=== PATIENT | female | born 1970 | race Caucasian/White ===

== ENCOUNTER 2017-03-25 01:02 | Emergency (ER) ==
[2017-03-25] MEDS ORDERED: DECADRON 4 MG/ML SDV IM STA (01:04)
--- NOTE | 2017-03-25 01:07 | ED.PDOC ---
General ED Provider: Dr. RENU BAUER-ER Chief Complaint: Rash Stated Complaint: i got into poison bridget Time Seen by Physician: 01:05 Mode of Arrival: Walk-In Information Source: Patient Exam Limitations: No limitations Nursing and Triage Documentation Reviewed and Agree: Yes Skin Complaint Exam - Skin Rash/Itching Complaint/Exam Onset/Duration: 24hrs Symptoms Are: Still present Initial Severity: Mild Current Severity: Mild Location: face and anterior chest Potential Exposures: Reports: Unknown Aggravating: Reports: None Alleviating: Reports: None Associated Signs and Symptoms: Denies: Difficulty breathing, Fever, Chills Skin Findings: Present: Urticaria, Maculae Differential Diagnoses: Contact Dermatitis, Poison Bridget/[place] Review of Systems - Review Of Systems Constitutional: Reports: No symptoms Eyes: Reports: No symptoms Ears, Nose, Mouth, Throat: Reports: No symptoms Respiratory: Reports: No symptoms Cardiac: Reports: No symptoms GI: Reports: No symptoms : Reports: No symptoms Musculoskeletal: Reports: No symptoms Skin: Reports: Rash Neurological: Reports: No symptoms Endocrine: Reports: No symptoms Hematologic/Lymphatic: Reports: No symptoms All Other Systems: Reviewed and Negative Past Medical History - Past Medical History Previously Healthy: Yes Endocrine: Reports: None Cardiovascular: Reports: None Respiratory: Reports: None Hematological: Reports: None Gastrointestinal: Reports: None Genitourinary: Reports: None Neuro/Psych: Reports: None Musculoskeletal: Reports: None Cancer: Reports: None - Surgical History General Surgical History: Reports: Hysterectomy (2015), (x 1) - Family History Family History: Reports: None - Social History Smoking Status: Current every day smoker, Heavy tobacco smoker Hx Substance Use: No Alcohol Screening: None Lives: With family Physical Exam - Physical Exam Appearance: Well-appearing Eyes: JEN, EOMI, Conjunctiva clear ENT: Ears normal, Nose normal, Oropharynx normal Neck: Supple Respiratory: Airway patent, Breath sounds clear, Breath sounds equal, Respirations nonlabored Cardiovascular: RRR, Pulses normal, No rub, No murmur GI/: Soft, Nontender, No masses, Bowel sounds normal, No Organomegaly Musculoskeletal: Normal strength, ROM intact, No edema, No calf tenderness Skin: Warm, Dry, Normal color (noted macular rash over the face) Neurological: Sensation intact, Motor intact, Reflexes intact, Cranial nerves intact, Alert, Oriented Psychiatric: Affect appropriate Critical Care Note - Critical Care Note Total Time (mins): 0 Course - Course Orders, Labs, Meds: Orders Category Date Time Status Dexamethasone 4 mg/ml Inj [Decadron 4 mg/ml Sdv] MEDS 03/25/17 01:04 Stat 8 mg IM ONCE STA Medications Generic Name Dose Route Start Last Admin Trade Name Sandy PRN Reason Stop Dose Admin Dexamethasone Sodium Phosphate 8 mg 03/25/17 01:04 Decadron 4 Mg/Ml Sdv IM 03/25/17 01:05 ONCE STA Departure - Departure Time of Disposition: 01:06 Disposition: HOME SELF-CARE Discharge Problem: Contact dermatitis Qualifiers: Contact dermatitis type: allergic Contact dermatitis trigger: non-food plants Qualifier Code: (L23.7) Allergic contact dermatitis due to plants, except food Instructions: Contact Dermatitis (ED) Condition: Good Pt referred to PMD for follow-up: Yes Additional Instructions: do not apply anything to the face===prednisone 40mg x 2 days then 20mg x2 days then 10mg x 2 days Allergies/Adverse Reactions: Allergies poison bridget extract Adverse Reaction (Verified 05/22/16 12:12) Home Medications: Ambulatory Orders 1 [No Reported Medications] 04/08/16 Disposition Discussed With: Patient
[2017-03-25 01:11] VITALS: BP 120/86; TEMP 98.4; BMI 28.3
== END 2017-03-25 01:35 | disposition home or self-care (01) ==
LOC: ED 01:02
DX: L23.7 Allergic contact dermatitis due to plants, except food (principal); F17.210 Nicotine dependence, cigarettes, uncomplicated
CPT/HCPCS: 96372; 99282

== ENCOUNTER 2017-04-08 21:56 | Emergency (ER) ==
[2017-04-08 21:59] VITALS: BP 123/80; TEMP 98; BMI 27.4
--- NOTE | 2017-04-08 22:10 | ED.PDOC ---
General ED Provider: Dr. RENU BAUER-ER Chief Complaint: Rash Stated Complaint: i have this rash--been in the weeds and its itchy Time Seen by Physician: 22:04 Mode of Arrival: Walk-In Information Source: Patient Exam Limitations: No limitations Nursing and Triage Documentation Reviewed and Agree: Yes Skin Complaint Exam - Skin Rash/Itching Complaint/Exam Onset/Duration: 3 weeks Symptoms Are: Still present Initial Severity: Mild Current Severity: Moderate Location: extremities and abdomen Potential Exposures: Reports: Insect bite, Scabies Aggravating: Reports: Heat Associated Signs and Symptoms: Denies: Difficulty breathing, Fever, Chills Skin Findings: Present: Dry scaly skin, Weeping skin, Dwight tracts Differential Diagnoses: Contact Dermatitis, Poison Bridget/[place], Scabies Review of Systems - Review Of Systems Constitutional: Reports: No symptoms Eyes: Reports: No symptoms Ears, Nose, Mouth, Throat: Reports: No symptoms Respiratory: Reports: No symptoms Cardiac: Reports: No symptoms GI: Reports: No symptoms : Reports: No symptoms Musculoskeletal: Reports: No symptoms Skin: Reports: Rash Neurological: Reports: No symptoms Endocrine: Reports: No symptoms Hematologic/Lymphatic: Reports: No symptoms All Other Systems: Reviewed and Negative Past Medical History - Past Medical History Previously Healthy: Yes Endocrine: Reports: None Cardiovascular: Reports: None Respiratory: Reports: None Hematological: Reports: None Gastrointestinal: Reports: None Genitourinary: Reports: None Neuro/Psych: Reports: None Musculoskeletal: Reports: None Cancer: Reports: None Last Menstrual Period: n/a - Surgical History General Surgical History: Reports: Hysterectomy (2015), (x 1) - Family History Family History: Reports: None - Social History Smoking Status: Current every day smoker, Heavy tobacco smoker Hx Substance Use: No Alcohol Screening: None Physical Exam - Physical Exam Appearance: Well-appearing, No pain distress, Well-nourished Eyes: JEN, EOMI, Conjunctiva clear ENT: Ears normal, Nose normal, Oropharynx normal Neck: Supple Respiratory: Airway patent, Breath sounds clear, Breath sounds equal, Respirations nonlabored Cardiovascular: RRR, Pulses normal, No rub, No murmur GI/: Soft, Nontender, No masses, Bowel sounds normal, No Organomegaly Musculoskeletal: Normal strength Skin: Warm Neurological: Sensation intact, Motor intact, Reflexes intact, Cranial nerves intact, Alert, Oriented Psychiatric: Affect appropriate, Mood appropriate Critical Care Note - Critical Care Note Total Time (mins): 0 Course - Course Vital Signs: Temp Pulse Resp BP Pulse Ox 04/08/17 21:57 98.0 F 97 H 20 123/80 98 Departure - Departure Time of Disposition: 22:11 Disposition: HOME SELF-CARE Discharge Problem: Pruritic rash Instructions: Acute Rash (ED) Condition: Good Pt referred to PMD for follow-up: Yes Additional Instructions: prednisone 40mg x 3 days then 20mg x3 days then 10mg x 3 dasy--lidex ointment apply bid to rash--elimite cream--apply from chin to the toes after shower-- leave on skin for 16hrs and wash off--repeat ni 5 days Allergies/Adverse Reactions: Allergies poison bridget extract Adverse Reaction (Verified 04/08/17 21:59) Home Medications: Ambulatory Orders 1 [No Reported Medications] 04/08/16 Disposition Discussed With: Patient
[2017-04-08] MEDS ORDERED: DECADRON 4 MG/ML SDV IM STA (22:18)
== END 2017-04-08 22:44 | disposition home or self-care (01) ==
LOC: ED 21:56
DX: R21 Rash and other nonspecific skin eruption (principal); L29.9 Pruritus, unspecified; F17.210 Nicotine dependence, cigarettes, uncomplicated
CPT/HCPCS: 96372; 99282

== ENCOUNTER 2018-10-25 14:41 | Emergency (ER) | payer OTHER ==
[2018-10-25 14:48] VITALS: BP 127/86; TEMP 102.2; BMI 28.3
[2018-10-25] MEDS ORDERED: TYLENOL PO STA ×2 (16:11→16:40)
[2018-10-25] MEDS ORDERED: SODIUM CHLORIDE 1,000 ML IV STA (16:11)
[2018-10-25 16:34] LABS: URINE PREGNANCY TEST NEGATIVE (NEGATIVE)
--- NOTE | 2018-10-25 17:36 | CT ---
EXAM: CT scan of the head without contrast HISTORY: Severe headache TECHNIQUE: Helical imaging of the head was performed without contrast. 5 mm thin axial images and c oronal and sagittal images were provided for interpretation. FINDINGS: The gauthier-white interface appears normal. The lateral ventricles and cortical sulci are no rmal. The basal cisterns are patent. The calvarium appears normal. The extracranial soft tissues a re normal. The paranasal sinuses and mastoid air cells are clear. IMPRESSION: No acute intracranial abnormalities are seen.
--- NOTE | 2018-10-25 17:40 | CT ---
EXAM: CT scan of the abdomen and pelvis without contrast HISTORY: Pain, flank TECHNIQUE: Imaging of the abdomen and pelvis was performed without contrast. 3 mm thin axial images and coronal and sagittal reconstructions were provided for interpretation. FINDINGS: The pancreas, liver and spleen and kidneys appear normal. The proximal ureters are normal size. The small and large bowel loops are normal caliber. There is no free air. The appendix appe ars normal. No retroperitoneal abnormalities are seen. The helical images obtained through the pelvis demonstrate a normal appearance of the rectum, urinary bladder. There is no free fluid seen within the pelvis. There has been previous hysterectomy. Mely g bases are clear. No lytic or blastic lesions are seen within the osseous structures. IMPRESSION: There is no bowel obstruction or acute inflammatory change seen within the abdomen and p yayo. There is no ureteral obstruction.
--- NOTE | 2018-10-25 17:44 | CT ---
EXAM: CT scan of the lumbar spine without contrast HISTORY: Low back pain, right flank pain. Fever TECHNIQUE: Helical imaging of the lumbar spine was performed without contrast. Sagittal and coronal reconstructions and axial images were provided for interpretation. FINDINGS: The alignment of the lumbar spine is normal. There is no evidence of compression fracture . Bilateral pars defects are seen at L5. There is anterior subluxation of L5 on S1 measuring approx imately 7.5 mm. No acute abnormalities are seen within the sacrum. The paraspinal soft tissues are normal. Five lumbar-type vertebral bodies are identified. Segmental analysis: T12-L1: The central canal and neural foramina appear patent. L1-L2: The central canal and neural foramina appear patent. L2-L3: The central canal and neural foramina appear patent. L3-L4: The central canal and lateral recesses and neural foramina appear patent. L4-L5: The central canal and lateral recesses appear patent. There is mild facet arthropathy result ing in mild stenosis of the neural foramina. L5-S1: The central canal and lateral recesses appear patent. There is mild to moderate stenosis of the neural foramina. IMPRESSION: No evidence of acute compression fracture. Grade 1 spondylolisthesis seen at L5-S1 secondary to bilateral pars defects at L5. There is no central canal stenosis. Bilateral foraminal stenosis seen at L4-L5 and at L5-S1.
--- NOTE | 2018-10-25 17:49 | DI ---
EXAM: Two-view chest HISTORY: Cough, pain TECHNIQUE: Frontal and lateral views of the chest were obtained. Comparison none. FINDINGS: The heart is normal size. Lungs are clear. The pulmonary vasculature appears normal. Th e costophrenic angles are sharp. The osseous structures and mediastinal contours are normal. IMPRESSION: No active cardiopulmonary disease.
[2018-10-25] MEDS ORDERED: LIDOCAINE HCL 1% SDV IM STA (17:56)
[2018-10-25] MEDS ORDERED: ROCEPHIN IM STA (17:56)
[2018-10-25] MEDS ORDERED: NORCO 10-325 PO STA (17:57)
--- NOTE | 2018-10-25 18:00 | ED.PDOC ---
General ED Provider: Dr. LINDA TREVINO Chief Complaint: Back Pain Stated Complaint: back pain , sore throat, headache flu like symptoms Time Seen by Physician: 15:00 (nurse present at all times [email or web address] [email or web address].[email or web address]) Mode of Arrival: Walk-In Information Source: Patient Exam Limitations: No limitations Referred to ED by: Other (NEGATIVE NECK PAIN OR STIFFNESS) Nursing and Triage Documentation Reviewed and Agree: Yes Does patient meet sepsis criteria?: No System Inflammatory Response Syndrome: Not Applicable Sepsis Protocol: For patient's 13 years and over: Temp is 96.8 and below OR 101 and greater Pulse >90 BPM Resp >20/minute Acutely Altered Mental Status Are patient's symptoms suggestive of a new infection, such as: -Pneumonia -Skin, Soft Tissue -Endocarditis -UTI -Bone, Joint Infection -Implantable Device -Acute Abdominal Infection -Wound Infection -Meningitis -Blood Stream Catheter Infection -Unknown EENT Complaint Exam - Throat Complaint/Exam Symptoms Are: Still present Timimg: Intermittent Initial Severity: Moderate Current Severity: Mild Aggravating: Reports: Eating Alleviating: Reports: None (BACK PAIN RIGHT FLANK) Associated Signs and Symptoms: Denies: Fever, Dysphagia, Drooling, Foreign body sensation, Chills, Cough, Wheezing, Hoarseness, Sinus discomfort, Nasal congestion, Difficulty breathing, Lethargy, Irritability, Decreased activity, Vomiting, Diarrhea, Decreased hearing, Ear drainage Uvula Midline: Yes Blanca-tonsillar Fluctuence: No Scarlatinaform Rash Present: No Lesions: Absent: Lip, Gums, Tongue, Buccal Mucosa, Pharynx Exanthem: Absent: Lip, Gums, Tongue, Buccal Mucosa, Pharynx Vesicles: Absent: Lip, Gums, Tongue, Buccal Mucosa, Pharynx Stridor Present: No Sinus Tenderness Present: No Tonsillar Hypertrophy Present: No Tonsillar Exudate Present: No Blanca-tonsillar Swelling Present: No Adenopathy Present: No Splenomegaly Present: No Differential Diagnoses: URI Review of Systems - Review Of Systems Constitutional: Reports: Chills Eyes: Reports: No symptoms Ears, Nose, Mouth, Throat: Reports: Throat pain Respiratory: Reports: No symptoms Cardiac: Reports: No symptoms GI: Reports: No symptoms : Reports: No symptoms Musculoskeletal: Reports: No symptoms Skin: Reports: No symptoms Neurological: Reports: No symptoms Endocrine: Reports: No symptoms Hematologic/Lymphatic: Reports: No symptoms All Other Systems: Reviewed and Negative Past Medical History - Past Medical History Previously Healthy: Yes Endocrine: Reports: None Cardiovascular: Reports: None Respiratory: Reports: None Hematological: Reports: None Gastrointestinal: Reports: None Genitourinary: Reports: None Neuro/Psych: Reports: None Musculoskeletal: Reports: None Cancer: Reports: None Last Menstrual Period: n/a - Surgical History General Surgical History: Reports: Hysterectomy (2015), (x 1) - Family History Family History: Reports: None - Social History Smoking Status: Current every day smoker, Heavy tobacco smoker Hx Substance Use: No Alcohol Screening: None Physical Exam - Physical Exam Appearance: Ill-appearing Ill-appearing: Mild Pain Distress: Mild Eyes: JEN, EOMI, Conjunctiva clear ENT: Erythema Respiratory: Airway patent, Breath sounds clear, Breath sounds equal, Respirations nonlabored Cardiovascular: RRR, Pulses normal, No rub, No murmur GI/: Soft, Nontender, No masses, Bowel sounds normal, No Organomegaly Musculoskeletal: Normal strength, ROM intact, No edema, No calf tenderness Skin: Warm, Dry, Normal color Neurological: Sensation intact, Motor intact, Reflexes intact, Cranial nerves intact, Alert, Oriented Psychiatric: Affect appropriate, Mood appropriate Critical Care Note - Critical Care Note Total Time (mins): 0 Course - Course Hematology/Chemistry: 10/25/18 16:06 10/25/18 16:20 Orders, Labs, Meds: Lab Review 10/25/18 10/25/18 10/25/18 16:06 16:15 16:15 WBC 10.84 H RBC 3.91 L Hgb 11.8 L Hct 36.5 L MCV 93.4 MCH 30.2 MCHC 32.3 RDW Coeff of Lemuel 13.3 Plt Count 316 Immature Gran % (Auto) 0.4 Neut % (Auto) 93.1 Lymph % (Auto) 3.2 L [place] % (Auto) 2.9 Eos % (Auto) 0.1 Baso % (Auto) 0.3 Immature Gran # (Auto) 0.0 Neut # (Auto) 10.1 H Lymph # (Auto) 0.4 L [place] # (Auto) 0.3 L Eos # (Auto) 0.0 Baso # (Auto) 0.0 Sodium Potassium Chloride Carbon Dioxide Anion Gap BUN Creatinine Estimated GFR (MDRD) BUN/Creatinine Ratio Glucose Lactic Acid Calcium Total Bilirubin AST ALT Alkaline Phosphatase Total Protein Albumin Globulin Albumin/Globulin Ratio Procalcitonin Urine Color Yellow Urine Clarity Clear Urine pH 5.0 Ur Specific [place] 1.025 Urine Protein Trace Urine Glucose (UA) Negative Urine Ketones Trace Urine Blood 2+ Urine Nitrite Negative Urine Bilirubin Negative Urine Urobilinogen 0.2 Ur Leukocyte Esterase 1+ Urine Microscopic RBC 0-2 Urine Microscopic WBC 10-20 Ur Squamous Epith Cells 5-10 Urine Mucus 1+ Urine Test Negative Influ A Molecular Assay Influ B Molecular Assay 10/25/18 10/25/18 10/25/18 16:15 16:20 16:20 WBC RBC Hgb Hct MCV MCH MCHC RDW Coeff of Lemuel Plt Count Immature Gran % (Auto) Neut % (Auto) Lymph % (Auto) [place] % (Auto) Eos % (Auto) Baso % (Auto) Immature Gran # (Auto) Neut # (Auto) Lymph # (Auto) [place] # (Auto) Eos # (Auto) Baso # (Auto) Sodium 135.6 Potassium 4.38 Chloride 103.5 Carbon Dioxide 20.7 L Anion Gap 15.78 BUN 13.5 Creatinine 0.58 L Estimated GFR (MDRD) 111.00 BUN/Creatinine Ratio 23.27 Glucose 95.3 Lactic Acid Calcium 8.49 Total Bilirubin 0.40 AST 53.3 H ALT 41.2 H Alkaline Phosphatase 78.5 Total Protein 6.79 Albumin 3.76 Globulin 3.03 Albumin/Globulin Ratio 1.24 Procalcitonin 2.44 Urine Color Urine Clarity Urine pH Ur Specific [place] Urine Protein Urine Glucose (UA) Urine Ketones Urine Blood Urine Nitrite Urine Bilirubin Urine Urobilinogen Ur Leukocyte Esterase Urine Microscopic RBC Urine Microscopic WBC Ur Squamous Epith Cells Urine Mucus Urine Test Influ A Molecular Assay Negative by naat Influ B Molecular Assay Negative by naat 10/25/18 16:20 WBC RBC Hgb Hct MCV MCH MCHC RDW Coeff of Lemuel Plt Count Immature Gran % (Auto) Neut % (Auto) Lymph % (Auto) [place] % (Auto) Eos % (Auto) Baso % (Auto) Immature Gran # (Auto) Neut # (Auto) Lymph # (Auto) [place] # (Auto) Eos # (Auto) Baso # (Auto) Sodium Potassium Chloride Carbon Dioxide Anion Gap BUN Creatinine Estimated GFR (MDRD) BUN/Creatinine Ratio Glucose Lactic Acid 0.93 Calcium Total Bilirubin AST ALT Alkaline Phosphatase Total Protein Albumin Globulin Albumin/Globulin Ratio Procalcitonin Urine Color Urine Clarity Urine pH Ur Specific [place] Urine Protein Urine Glucose (UA) Urine Ketones Urine Blood Urine Nitrite Urine Bilirubin Urine Urobilinogen Ur Leukocyte Esterase Urine Microscopic RBC Urine Microscopic WBC Ur Squamous Epith Cells Urine Mucus Urine Test Influ A Molecular Assay Influ B Molecular Assay Orders Category Date Time Status BLOOD CULTURE Stat LAB 10/25/18 16:20 Received CBC W/ AUTO DIFF Stat LAB 10/25/18 16:06 Completed COMPREHENSIVE METABOLIC PANEL Stat LAB 10/25/18 16:20 Completed FLU A/B MOLECULAR Stat LAB 10/25/18 16:15 Completed LACTIC ACID Stat LAB 10/25/18 16:20 Completed MOLECULAR GROUP A STREP Stat LAB 10/25/18 16:15 Completed PROCALCITONIN Stat LAB 10/25/18 16:20 Completed URINALYSIS C & S IF INDICATED Stat LAB 10/25/18 16:15 Completed URINE CULTURE Stat LAB 10/25/18 16:15 Received URINE Stat LAB 10/25/18 16:15 Completed Acetaminophen [Tylenol] MEDS 10/25/18 16:40 Discontinued 1,000 mg PO ONCE STA Ceftriaxone Sodium [Rocephin] MEDS 10/25/18 17:56 Stat 1 gm IM ONCE STA Hydrocodone Bit/Acetaminophen [[place] 10-325] MEDS 10/25/18 17:57 Stat 1 tab PO ONCE STA Lidocaine HCl/Pf [Lidocaine HCl 1% Sdv] MEDS 10/25/18 17:56 Stat 2.1 ml IM ONCE STA CHEST, 2 VIEWS PA & LAT Stat RADS 10/25/18 16:[address] ABD/PEL WO RENAL STONE PROT Stat RADS 10/25/18 16:[address] HEAD W/O CONTRAST Stat RADS 10/25/18 16:[address] LUMBAR SPINE W/O CONTRAST Stat RADS 10/25/18 16:10 Completed Medications Generic Name Dose Route Start Last Admin Trade Name Freq PRN Reason Stop Dose Admin Hydrocodone Bitart/Acetaminophen 1 tab 10/25/18 17:57 [place] 10-325 PO 10/25/18 17:58 ONCE STA Discontinued Medications Generic Name Dose Route Start Last Admin Trade Name Freq PRN Reason Stop Dose Admin Acetaminophen 1,000 mg 10/25/18 16:40 10/25/18 17:15 Tylenol PO 10/25/18 16:41 1,000 mg ONCE STA Administration Ceftriaxone Sodium 1 gm 10/25/18 17:56 Rocephin IM 10/25/18 17:57 ONCE STA Lidocaine HCl 2.1 ml 10/25/18 17:56 Lidocaine Hcl 1% Sdv IM 10/25/18 17:57 ONCE STA Vital Signs: Temp Pulse Resp BP Pulse Ox 10/25/18 14:42 102.2 F H 120 H 16 127/86 98 Departure - Departure Time of Disposition: 18:00 Disposition: HOME SELF-CARE Discharge Problem: Strep pharyngitis Instructions: Pharyngitis (ED), Strep Throat (ED) Condition: Good Pt referred to PMD for follow-up: Yes IPMP verified?: No Additional Instructions: Please call your Family Physician as soon as possible to schedule a follow-up appointment. Prescriptions: Amoxicillin 500 mg PO Q6HR #21 tablet Hydrocodone/Acetaminophen [[place] 10-325 Tablet] 1 each PO Q8HR #7 tablet Allergies/Adverse Reactions: Allergies poison yoon extract Adverse Reaction (Verified 10/25/18 14:48) Home Medications: Ambulatory Orders Amoxicillin 500 mg PO Q6HR #21 tablet 10/25/18 Hydrocodone/Acetaminophen [[place] 10-325 Tablet] 1 each PO Q8HR #7 tablet Disposition Discussed With: Patient
== END 2018-10-25 18:36 | disposition home or self-care (01) ==
LOC: ED 14:41
DX: J02.0 Streptococcal pharyngitis (principal); M54.9 Dorsalgia, unspecified; F17.210 Nicotine dependence, cigarettes, uncomplicated
CPT/HCPCS: 36415; 74176; 80053; 81001; 81025; 83605; 84145; 85025; 87040; 87070; 87086; 87186; 87502; 87651; 96372; 99283